=== PATIENT | female | born 1950 | race Caucasian/White ===

== ENCOUNTER → 2017-06-06 | Outpatient (CLI) | payer MEDICARE, BC ==
--- NOTE | 2017-06-10 08:05 | MM ---
Reason for exam: screening (asymptomatic). Last mammogram was performed 1 year and 1 month ago. History: Patient is postmenopausal, has history of breast cancer at age 59, has history of high-risk lesion on a previous biopsy at age 59, and is nulliparous. Malignant right breast needle localzation of the right breast, March 22, 2010. Malignant right mammotome panel of the right breast, March 14, 2010. Lumpectomy of the right breast, 2009. Benign excisional biopsy of the right breast, 1997. 2 benign cyst aspirations, 1995. Took estrogen for 9 years beginning at age 49. Took progesterone for 9 years beginning at age 49. Physical Findings: A clinical breast exam by your physician is recommended on an annual basis and results should be correlated with mammographic findings. MG 3D Screening Mammo W/Cad Bilateral CC and MLO view(s) were taken. Prior study comparison: May 20, 2016, bilateral MG screening mammo w CAD. May 18, 2015, bilateral MG 3d diag mammo w/cad [facility]. The breast tissue is heterogeneously dense. This may lower the sensitivity of mammography. No significant changes when compared with prior studies. ASSESSMENT: Negative, BI-RAD 1 RECOMMENDATION: Follow-up diagnostic mammogram of both breasts in 1 year.
== END | disposition home or self-care (01) ==
LOC: RADMAMWWP 07:48
PROVIDERS: ATTEND Internal Medicine Geriatric Medicine
DX: Z12.31 Encounter for screening mammogram for malignant neoplasm of breast (principal)
CPT/HCPCS: 77063; G0202

== ENCOUNTER → 2018-06-08 | Outpatient (CLI) | payer MEDICARE, BC ==
--- NOTE | 2018-06-08 23:17 | BD ---
EXAMINATION TYPE: Axial Bone Density DATE OF EXAM: 06/08/2018 COMPARISON: NONE CLINICAL HISTORY: 67-year-old female age-related osteoporosis, postmenopausal screening Height: 65 Weight: 132.9 FRAX RISK QUESTIONS: Alcohol (3 or more units per day): no Family History (Parent hip fracture): yes Glucocorticoids (More than 3mos): no (Ex: prednisone, prednisolone, methylprednisolone, dexamethasone, and hydrocortisone). History of Fracture in Adulthood: no Secondary Osteoporosis: 1. Type 1 Diabetes: no 2. Hyperthyroidism: no 3. Menopause before 45: no 4. Malnutrition: no 5. Chronic liver disease: no Rheumatoid Arthritis: no Current Tobacco Use: no RISK FACTORS HISTORY OF: Family History of Osteoporosis: no Active: yes Diet low in dairy products/other sources of calcium: yes Postmenopausal woman: age 59 Lost more than 2 inches in height since high school: no MEDICATIONS: simvastatin, Drisdol, loratadine, floricet, aspirin, caltrate, omega 3 Additional History: EXAM MEASUREMENTS: Bone mineral densitometry was performed using the [employer] System. Bone mineral density as measured about the Lumbar spine is: ----- L1-L4(G/cm2): 1.124 T Score Values are as follows: ----- L2: -0.6 ----- L3: -0.2 ----- L4: -0.4 ----- L1-L4: -0.5 Bone mineral density has: decreased -3.0 % since study of: 05.18.2015 Bone mineral density about the R hip (g/cm2): 0.736 Bone mineral density about the L hip (g/cm2): 0.740 T Score values are as follows: -----R Neck: -2.2 -----L Neck: -2.1 -----R Total: -1.9 -----L Total: -1.9 Bone mineral density has: decreased -2.0 % since study of: 05.18.2015 IMPRESSION: Osteopenia (T Score between -2.5 and -1). There is slightly increased risk of fracture and the patient may be considered for treatment. Re-Screen 2-5 years. NOTE: T-SCORE=SD OF THE YOUNG ADULT MEAN.
--- NOTE | 2018-06-09 13:11 | MM ---
Reason for exam: screening (asymptomatic). Last mammogram was performed 1 year ago. History: Patient is postmenopausal, has history of breast cancer at age 59, has history of high-risk lesion on a previous biopsy at age 59, and is nulliparous. Malignant right breast needle localzation of the right breast, March 22, 2010. Malignant right mammotome panel of the right breast, March 14, 2010. Lumpectomy of the right breast, 2009. Benign excisional biopsy of the right breast, 1997. 2 benign cyst aspirations, 1995. Took estrogen for 9 years beginning at age 49. Took progesterone for 9 years beginning at age 49. Physical Findings: A clinical breast exam by your physician is recommended on an annual basis and results should be correlated with mammographic findings. MG 3D Screening Mammo W/Cad Bilateral CC and MLO view(s) were taken. Prior study comparison: June 06, 2017, bilateral MG 3d screening mammo w/cad. May 20, 2016, bilateral MG screening mammo w CAD. The breast tissue is heterogeneously dense. This may lower the sensitivity of mammography. Benign appearing bilateral calcifications. No suspicious abnormality. Post therapy change on right breast. No significant changes when compared with prior studies. ASSESSMENT: Benign, BI-RAD 2 RECOMMENDATION: Routine screening mammogram of both breasts in 1 year.
== END | disposition home or self-care (01) ==
LOC: RADMAMWWP 07:56
PROVIDERS: ATTEND Internal Medicine
DX: Z12.31 Encounter for screening mammogram for malignant neoplasm of breast (principal); M85.88 Other specified disorders of bone density and structure, other site
CPT/HCPCS: 77063; 77067; 77080

== ENCOUNTER → 2019-06-10 | Outpatient (CLI) | payer MEDICARE, BC ==
--- NOTE | 2019-06-11 12:13 | MM ---
Reason for exam: screening (asymptomatic). Last mammogram was performed 1 year ago. History: Patient is postmenopausal, has history of breast cancer at age 59, has history of high-risk lesion on a previous biopsy at age 59, and is nulliparous. Malignant right breast needle localzation of the right breast, March 22, 2010. Malignant right mammotome panel of the right breast, March 14, 2010. Lumpectomy of the right breast, 2009. Benign excisional biopsy of the right breast, 1997. 2 benign cyst aspirations, 1995. Took estrogen for 9 years beginning at age 49. Took progesterone for 9 years beginning at age 49. Physical Findings: A clinical breast exam by your physician is recommended on an annual basis and results should be correlated with mammographic findings. MG 3D Screening Mammo W/Cad Bilateral CC and MLO view(s) were taken. Prior study comparison: June 08, 2018, bilateral MG 3d screening mammo w/cad. June 06, 2017, bilateral MG 3d screening mammo w/cad. The breast tissue is heterogeneously dense. This may lower the sensitivity of mammography. Focal asymmetry upper outer right breast. This finding is changed when compared with previous exams. ASSESSMENT: Incomplete: need additional imaging evaluation, BI-RAD 0 RECOMMENDATION: Special view mammogram of the right breast. If lesion persists on supplemental views, image directed ultrasound is recommended. [facility] will attempt to contact patient to return for supplemental views and ultrasound if indicated.
== END | disposition home or self-care (01) ==
LOC: RADMAMWWP 08:47
PROVIDERS: ATTEND Internal Medicine Geriatric Medicine
DX: Z12.31 Encounter for screening mammogram for malignant neoplasm of breast (principal)
CPT/HCPCS: 77063; 77067

== ENCOUNTER → 2019-06-22 | Outpatient (CLI) | payer MEDICARE, BC ==
--- NOTE | 2019-06-23 08:07 | MM ---
Reason for exam: additional evaluation requested from abnormal screening. Last mammogram was performed less than 1 month ago. History: Patient is postmenopausal, has history of breast cancer at age 59, has history of high-risk lesion on a previous biopsy at age 59, and is nulliparous. Malignant right breast needle localzation of the right breast, March 22, 2010. Malignant right mammotome panel of the right breast, March 14, 2010. Lumpectomy of the right breast, 2009. Benign excisional biopsy of the right breast, 1997. 2 benign cyst aspirations, 1995. Took estrogen for 9 years beginning at age 49. Took progesterone for 9 years beginning at age 49. Physical Findings: Nurse did not find any significant physical abnormalities on exam. MG 3D Work Up W/Cad RT Spot compression CC, spot compression MLO, and LM view(s) were taken of the right breast. Prior study comparison: June 10, 2019, bilateral MG 3d screening mammo w/cad. June 08, 2018, bilateral MG 3d screening mammo w/cad. The breast tissue is heterogeneously dense. This may lower the sensitivity of mammography. Finding: Stable architectural distortion in the upper outer quadrant of the right breast consistent with known excisional changes. No new lesion seen. These results were verbally communicated with the patient and result sheet given to the patient on 06/22/19. ASSESSMENT: Benign, BI-RAD 2 RECOMMENDATION: Follow-up diagnostic mammogram of both breasts in 1 year. Back on schedule.
== END | disposition home or self-care (01) ==
LOC: RADMAMWWP 14:46
PROVIDERS: ATTEND Internal Medicine Geriatric Medicine
DX: R92.8 Other abnormal and inconclusive findings on diagnostic imaging of breast (principal)
CPT/HCPCS: 77065; G0279; 77061

== ENCOUNTER → 2020-07-12 | Outpatient (CLI) | payer MEDICARE, BC ==
--- NOTE | 2020-07-12 14:36 | MM ---
Reason for exam: additional evaluation requested from prior study. Last mammogram was performed 1 year and 1 month ago. History: Patient is postmenopausal, has history of breast cancer at age 59, has history of high-risk lesion on a previous biopsy at age 59, and is nulliparous. Malignant right breast needle localzation of the right breast, March 22, 2010. Malignant right mammotome panel of the right breast, March 14, 2010. Lumpectomy of the right breast, 2009. Benign excisional biopsy of the right breast, 1997. 2 benign cyst aspirations, 1995. Took estrogen for 9 years beginning at age 49. Took progesterone for 9 years beginning at age 49. Physical Findings: Nurse did not find any significant physical abnormalities on exam. MG 3D Diag Mammo W/Cad [facility] Bilateral CC and MLO view(s) were taken. Prior study comparison: June 22, 2019, right breast MG 3d work up w/cad RT. June 10, 2019, bilateral MG 3d screening mammo w/cad. The breast tissue is heterogeneously dense. This may lower the sensitivity of mammography. Stable benign calcifications. Stable post lumpectomy changes right breast. No significant new findings when compared with previous films. These results were verbally communicated with the patient and result sheet given to the patient on 07/12/20. ASSESSMENT: Benign, BI-RAD 2 RECOMMENDATION: Follow-up diagnostic mammogram of both breasts in 1 year.
--- NOTE | 2020-07-17 09:00 | BD ---
EXAMINATION TYPE: Axial Bone Density DATE OF EXAM: 07/12/2020 COMPARISON: DEXA 2018. CLINICAL HISTORY: Osteoporosis. Height: 5 FT 5 IN Weight: 130 FRAX RISK QUESTIONS: Alcohol (3 or more units per day): NO Family History (Parent hip fracture): YES Glucocorticoids (More than 3mos): NO (Ex: prednisone, prednisolone, methylprednisolone, dexamethasone, and hydrocortisone). History of Fracture in Adulthood: NO Secondary Osteoporosis: 1. Type 1 Diabetes: NO 2. Hyperthyroidism: NO 3. Menopause before 45: NO 4. Malnutrition: NO 5. Chronic liver disease: NO Rheumatoid Arthritis: NO Current Tobacco Use: NO RISK FACTORS HISTORY OF: Family History of Osteoporosis: NO Active: YES Diet low in dairy products/other sources of calcium: NO Postmenopausal woman: AGE 59 Take estrogen and/or progesterone medications: TOOK HRT FROM AGE [age] NONE NOW Lost more than 2 inches in height since high school: NO MEDICATIONS: Additional Medications: SIMVASTATIN, VIT D ,MIGRAINE MEDS NEEDED,ALLERGY MEDS, CALCIUM Additional History: EXAM MEASUREMENTS: Bone mineral densitometry was performed using the [employer] System. Bone mineral density as measured about the Lumbar spine is: ----- L1-L4(G/cm2): 1.149 T Score Values are as follows: ----- L2: -0.8 ----- L3: 0.0 ----- L4: 0.0 ----- L1-L4: -0.3 Bone mineral density has: DECREASED -1.5 % since study of: 2014 Bone mineral density about the R hip (g/cm2): 0.733 Bone mineral density about the L hip (g/cm2): 0.718 T Score values are as follows: -----R Neck: -2.2 -----L Neck: -2.3 -----R Total: -1.9 -----L Total: -2.1 Bone mineral density has: DECREASED -4.1 % since study of: 2014 IMPRESSION: Osteopenia (T Score between -2.5 and -1) remains present. There remains slightly increased risk of fracture and the patient may be considered for treatment. Re-Screen 2-5 years. NOTE: T-SCORE=SD OF THE YOUNG ADULT MEAN.
== END | disposition home or self-care (01) ==
LOC: RADBDWWP 13:15
PROVIDERS: ATTEND Internal Medicine Geriatric Medicine
DX: R92.2 Inconclusive mammogram (principal); M85.80 Other specified disorders of bone density and structure, unspecified site; M81.0 Age-related osteoporosis without current pathological fracture
CPT/HCPCS: 77080; 77066; G0279; 77062

== ENCOUNTER → 2021-07-16 | Outpatient (CLI) | payer MEDICARE, BC ==
--- NOTE | 2021-07-18 11:23 | MM ---
Reason for exam: screening (asymptomatic). Last mammogram was performed 1 year ago. History: Patient is postmenopausal, has history of breast cancer at age 59, has history of high-risk lesion on a previous biopsy at age 59, and is nulliparous. Malignant right breast needle localzation of the right breast, March 22, 2010. Malignant right mammotome panel of the right breast, March 14, 2010. Lumpectomy of the right breast, 2009. Benign excisional biopsy of the right breast, 1997. 2 benign cyst aspirations, 1995. Took estrogen for 9 years beginning at age 49. Took progesterone for 9 years beginning at age 49. Physical Findings: A clinical breast exam by your physician is recommended on an annual basis and results should be correlated with mammographic findings. MG 3D Screening Mammo W/Cad Bilateral CC and MLO view(s) were taken. Prior study comparison: July 12, 2020, bilateral MG 3d diag mammo w/cad [facility]. June 22, 2019, right breast MG 3d work up w/cad RT. The breast tissue is heterogeneously dense. This may lower the sensitivity of mammography. Stable course calcifications laterally. Excisional changes right breast. No significant changes when compared with prior studies. ASSESSMENT: Benign, BI-RAD 2 RECOMMENDATION: Routine screening mammogram of both breasts in 1 year.
== END | disposition home or self-care (01) ==
LOC: RADMAMWWP 13:13
PROVIDERS: ATTEND Internal Medicine Geriatric Medicine
DX: Z12.31 Encounter for screening mammogram for malignant neoplasm of breast (principal); Z85.3 Personal history of malignant neoplasm of breast; Z78.0 Asymptomatic menopausal state
CPT/HCPCS: 77063; 77067

== ENCOUNTER → 2022-07-17 | Outpatient (CLI) | payer MEDICARE ==
--- NOTE | 2022-07-17 13:10 | BD ---
EXAMINATION TYPE: Axial Bone Density DATE OF EXAM: 07/17/2022 COMPARISON: 07/12/2020 CLINICAL HISTORY: 71 years old Female. ICD-10 CODE: M81.0 age related osteoporosis Height: 64 Weight: 128 FRAX RISK QUESTIONS: Alcohol (3 or more units per day): NO Family History (Parent hip fracture): YES FATHER History of Fracture in Adulthood: NO Secondary Osteoporosis: NO Rheumatoid Arthritis: NO RISK FACTORS HISTORY OF: Family History of Osteoporosis: NO Active: YES Diet low in dairy products/other sources of calcium: NO Postmenopausal woman: YES 53 Lost more than 2 inches in height since high school: NO Frequent falls: NO Poor Health: NO Hyperparathyroidism: NO Adrenal Insufficiency: NO MEDICATIONS: Additional Medications: YES CHOLESTEROL , VIT D , MIGRAINE MEDS , CALTRATE Additional History: YES LOBULAR CA STAGE 0 HIGH RISK EXAM MEASUREMENTS: Bone mineral densitometry was performed using the [employer] System. Bone mineral density as measured about the Lumbar spine is: ----- L1-L4(G/cm2): 1.131 T Score Values are as follows: ----- L1: -0.8 ----- L2: -1.0 ----- L3: 0.0 ----- L4: -0.1 ----- L1-L4: -0.4 Bone mineral density has: Decreased -1.6% since study of: 07/12/2020 Bone mineral density about the R hip (g/cm2): 0.746 Bone mineral density about the L hip (g/cm2): 0.745 T Score values are as follows: -----R Neck: -2.4 -----L Neck: -2.2 -----R Total: -2.1 -----L Total: -2.1 Bone mineral density has: Decreased -0.9% since study of: 07/12/2020 FRAX%s: The graph provided illustrates a 21.4% chance for a major osteoporotic fx and a 7.9% chance f or the hips probability for fx in 10 years time. IMPRESSION: Osteopenia (T Score between -2.5 and -1). There is slightly increased risk of fracture and the patient may be considered for treatment. Re-Screen 2-5 years. NOTE: T-SCORE=SD OF THE YOUNG ADULT MEAN.
--- NOTE | 2022-07-18 08:49 | MM ---
Reason for Exam: Screening (asymptomatic). Last screening mammogram was performed 12 month(s) ago. Patient History: Menarche at age 15. Patient has no children. Postmenopausal. Breast cancer, right, age 59. Estrogen for 9 years from age 49 until age 59. Progesterone for 9 years from age 49 until age 59. 2009, Lumpectomy on the Right side. Benign Cyst Aspiration. 1997, Benign Excisional Biopsy on the right side. Benign Cyst Aspiration. 03/22/2010, Malignant Excisional Biopsy on the right side. 03/14/2010, Malignant Core Biopsy on the right side. Prior Study Comparison: 06/22/2019 Right Diagnostic Mammogram, [facility]. 07/12/2020 Bilateral Diagnostic Mammogram, [facility]. 07/16/2021 Bilateral Screening Mammogram, [facility]. Tissue Density: The breast tissue is heterogeneously dense. This may lower the sensitivity of mammography. Findings: Analyzed By CAD. Right: Asymmetry middle depth 3.3 cm from nipple posterior nipple line best appreciated on CC view measuring approximately 4 mm. Left: There is no suspicious group of microcalcifications or new suspicious mass in either breast. Overall Assessment: Incomplete: need additional imaging evaluation, BI-RAD 0 Management: Diagnostic Mammogram of the right breast. Diagnostic Breast Ultrasound of the right breast. Ultrasound if asymmetry persists in the right breast. A clinical breast exam by your physician is recommended on an annual basis and results should be correlated with mammographic findings. [facility] will attempt to contact patient to return for supplemental views and ultrasound if indicated. Electronically signed and approved by: Willy Gallardo DO
== END | disposition home or self-care (01) ==
LOC: RADMAMWWP 08:47
PROVIDERS: ATTEND Internal Medicine Geriatric Medicine
DX: Z12.31 Encounter for screening mammogram for malignant neoplasm of breast (principal); M81.0 Age-related osteoporosis without current pathological fracture; M85.89 Other specified disorders of bone density and structure, multiple sites; Z78.0 Asymptomatic menopausal state
CPT/HCPCS: 77063; 77067; 77080

== ENCOUNTER → 2022-07-22 | Outpatient (CLI) | payer MEDICARE ==
--- NOTE | 2022-07-22 09:11 | MM ---
Reason for Exam: Additional evaluation requested from abnormal screening. Last screening mammogram was performed less than 1 month ago. Patient History: Menarche at age 15. Patient has no children. Postmenopausal. Breast cancer, right, age 59. Estrogen for 9 years from age 49 until age 59. Progesterone for 9 years from age 49 until age 59. 2009, Lumpectomy on the Right side. Benign Cyst Aspiration. 1997, Benign Excisional Biopsy on the right side. Benign Cyst Aspiration. 03/22/2010, Malignant Excisional Biopsy on the right side. 03/14/2010, Malignant Core Biopsy on the right side. Prior Study Comparison: 12/07/2002 Bilateral Screening Mammogram, [facility]. 12/14/2004 Bilateral Screening Mammogram, [facility]. 12/17/2005 Bilateral Screening Mammogram, [facility]. 03/20/2011 Bilateral Diagnostic Mammogram, [facility]. 03/25/2012 Bilateral Diagnostic Mammogram, [facility]. 04/13/2013 Bilateral Diagnostic Mammogram, [facility]. 05/17/2014 Bilateral Diagnostic Mammogram, [facility]. 05/18/2015 Bilateral Diagnostic Mammogram, [facility]. 05/20/2016 Bilateral Screening Mammogram, [facility]. 06/06/2017 Bilateral Screening Mammogram, [facility]. 06/08/2018 Bilateral Screening Mammogram, [facility]. 06/10/2019 Bilateral Screening Mammogram, [facility]. 06/22/2019 Right Diagnostic Mammogram, [facility]. 07/12/2020 Bilateral Diagnostic Mammogram, [facility]. 07/16/2021 Bilateral Screening Mammogram, [facility]. 07/17/2022 Bilateral MG 3D screening mammo w/cad, [facility]. Tissue Density: Right: The breast tissue is heterogeneously dense. This may lower the sensitivity of mammography. Findings: Analyzed By CAD. Postexcisional changes 11:00 right breast. Central right CC view nodular asymmetric density becomes less defined on spot 3-D CC image, appearance similar compared to 07/16/2021 and 07/12/2020 exams. Precautionary 6 month follow-up recommended. Overall Assessment: Probably benign, BI-RAD 3 Management: Diagnostic Mammogram of the right breast in 6 months. 1. Patient should continue monthly self breast exams. 2. A clinical breast exam by your physician is recommended on an annual basis. 3. This exam should not preclude additional follow-up of suspicious palpable abnormalities. Results were given to the patient verbally at the time of exam. Electronically signed and approved by: Bruce Darnell M.D. Radiologist
== END | disposition home or self-care (01) ==
LOC: RADMAMWWP 06:58
PROVIDERS: ATTEND Internal Medicine Geriatric Medicine
DX: R92.8 Other abnormal and inconclusive findings on diagnostic imaging of breast (principal); Z78.0 Asymptomatic menopausal state
CPT/HCPCS: 77065; G0279; 77061

== ENCOUNTER → 2023-01-29 | Outpatient (CLI) | payer MEDICARE ==
--- NOTE | 2023-01-30 08:49 | MM ---
Reason for Exam: Follow-up at short interval from prior study. Last screening mammogram was performed 7 month(s) ago. Patient History: Menarche at age 15. Patient has no children. Postmenopausal. Breast cancer, right, age 59. Estrogen for 9 years from age 49 until age 59. Progesterone for 9 years from age 49 until age 59. 2009, Lumpectomy on the Right side. Benign Cyst Aspiration. 1997, Benign Excisional Biopsy on the right side. Benign Cyst Aspiration. 03/22/2010, Malignant Excisional Biopsy on the right side. 03/14/2010, Malignant Core Biopsy on the right side. Prior Study Comparison: 07/16/2021 Bilateral Screening Mammogram, [facility]. 07/17/2022 Bilateral MG 3D screening mammo w/cad, [facility]. 07/22/2022 Right MG 3D work up w/cad RT, [facility]. Tissue Density: Right: The breast tissue is heterogeneously dense. This may lower the sensitivity of mammography. Findings: Analyzed By CAD. Stable fibroglandular tissue appears within the right breast. No suspicious findings. No new suspicious masses, calcifications or distortions. Overall Assessment: Benign, BI-RAD 2 Management: Screening Mammogram of both breasts in 6 months. Results were given to the patient verbally at the time of exam. Patient should continue monthly self-breast exams. A clinical breast exam by your physician is recommended on an annual basis. This exam should not preclude additional follow-up of suspicious palpable abnormalities. Note on Tawana scores and lifetime risk: 1. A Tawana score greater than 3% is considered moderate risk. If this is the case, consider specialist referral to assess eligibility for a risk reducing agent. 2. If overall lifetime risk for the development of breast cancer is 20% or higher, the patient may qualify for future screening with alternating mammogram and breast MRI. Electronically signed and approved by: Willy Gallardo DO
== END | disposition home or self-care (01) ==
LOC: RADMAMWWP 14:03
PROVIDERS: ATTEND Internal Medicine Geriatric Medicine
DX: R92.8 Other abnormal and inconclusive findings on diagnostic imaging of breast (principal); Z78.0 Asymptomatic menopausal state
CPT/HCPCS: 77065; G0279; 77061

== ENCOUNTER → 2023-08-04 | Outpatient (CLI) | payer MEDICARE ==
--- NOTE | 2023-08-05 10:22 | MM ---
Reason for Exam: Screening (asymptomatic). Last mammogram was performed 1 year(s) and 1 month(s) ago. Patient History: Menarche at age 15. Patient has no children. Postmenopausal. Breast cancer, right, age 59. Estrogen for 9 years from age 49 until age 59. Progesterone for 9 years from age 49 until age 59. 2009, Lumpectomy on the Right side. Benign Cyst Aspiration. 1997, Benign Excisional Biopsy on the right side. Benign Cyst Aspiration. 03/22/2010, Malignant Excisional Biopsy on the right side. 03/14/2010, Malignant Core Biopsy on the right side. Prior Study Comparison: 07/17/2022 Bilateral MG 3D screening mammo w/cad, [facility]. 07/22/2022 Right MG 3D work up w/cad RT, [facility]. 01/29/2023 Right MG 3D diag mammo w/cad RT, [facility]. Tissue Density: The breast tissue is heterogeneously dense. This may lower the sensitivity of mammography. Findings: Analyzed By CAD. There is no suspicious group of microcalcifications or new suspicious mass. Overall Assessment: Negative, BI-RAD 1 Management: Screening Mammogram of both breasts in [address] [facility] will attempt to contact patient to return for supplemental views and ultrasound if indicated. Patient should continue monthly self-breast exams. A clinical breast exam by your physician is recommended on an annual basis. This exam should not preclude additional follow-up of suspicious palpable abnormalities. Note on Tawana scores and lifetime risk: 1. A Tawana score greater than 3% is considered moderate risk. If this is the case, consider specialist referral to assess eligibility for a risk reducing agent. 2. If overall lifetime risk for the development of breast cancer is 20% or higher, the patient may qualify for future screening with alternating mammogram and breast MRI. Electronically signed and approved by: Willy Gallardo DO
== END | disposition home or self-care (01) ==
LOC: RADMAMWWP 10:22
PROVIDERS: ATTEND Internal Medicine Geriatric Medicine
DX: Z12.31 Encounter for screening mammogram for malignant neoplasm of breast (principal); Z85.3 Personal history of malignant neoplasm of breast; Z78.0 Asymptomatic menopausal state
CPT/HCPCS: 77063; 77067

== ENCOUNTER → 2024-08-05 | Outpatient (CLI) | payer MEDICARE ==
--- NOTE | 2024-08-05 12:30 | BD ---
EXAMINATION TYPE: Axial Bone Density DATE OF EXAM: 08/05/2024 CLINICAL HISTORY: 73 years old Female. ICD-10 CODE: M81.0 OSTEOPENIA , Additional History: Height: 5 ft 5 in Weight: 130 FRAX RISK QUESTIONS: Alcohol (3 or more units per day): no Family History (Parent hip fracture): yes Glucocorticoids (More than 3mos): no (Ex: prednisone, prednisolone, methylprednisolone, dexamethasone, and hydrocortisone). History of Fracture in Adulthood: no Secondary Osteoporosis: 1. Type 1 Diabetes: no 2. Hyperthyroidism: no 3. Menopause before 45: no 4. Malnutrition: no 5. Chronic liver disease: no Rheumatoid Arthritis: no Current Tobacco Use: no RISK FACTORS HISTORY OF: Surgery to Spine/Hip(right/left)/Wrist (right/left): no MEDICATIONS: Thyroid Medications: none Osteoporosis Medications: none EXAM MEASUREMENTS: Bone mineral densitometry was performed using the [email or web address] System. Bone mineral density as measured about the Lumbar spine is: ----- L1-L4(G/cm2): 1.102 T Score Values are as follows: ----- L1: -1.1 ----- L2: -1.2 ----- L3: -0.2 ----- L4: -0.4 ----- L1-L4: -0.6 Z Score Values are as follows: ----- L1: 0.8 ----- L2: 0.7 ----- L3: 1.7 ----- L4: 1.5 ----- L1-L4: 1.3 Bone mineral density has: decreased -2.6 % since study of: 2021 Bone mineral density about the R hip (g/cm2): 0.735 Bone mineral density about the L hip (g/cm2): 0.691 T Score values are as follows: -----R Neck: -2.2 -----L Neck: -2.5 -----R Total: -1.9 -----L Total: -2.4 Z Score values are as follows: -----R Neck: -0.2 -----L Neck: -0.6 -----R Total: -0.2 -----L Total: -0.7 Bone mineral density has: decreased -1.6 % since study of: 2021 FRAX%s: The graph provided illustrates a 25.3 % chance for a major osteoporotic fx and a 13.4 % chanc e for the hips probability for fx in 10 years time. IMPRESSION: Osteopenia (T Score between -2.5 and -1) remains present. There is slightly increased risk of fracture and the patient may be considered for treatment. Re-Screen 2-5 years. NOTE: T-SCORE=SD OF THE YOUNG ADULT MEAN. [facility], , 08/05/2024 12:28 PM
--- NOTE | 2024-08-05 12:34 | MM ---
Reason for Exam: Screening (asymptomatic). Last screening mammogram was performed 12 month(s) ago. Patient History: Menarche at age 15. Patient has no children. Postmenopausal. Breast cancer, right, age 59. Estrogen for 9 years from age 49 until age 59. Progesterone for 9 years from age 49 until age 59. 2009, Lumpectomy on the Right side. Benign Cyst Aspiration. 1997, Benign Excisional Biopsy on the right side. Benign Cyst Aspiration. 03/22/2010, Malignant Excisional Biopsy on the right side. 03/14/2010, Malignant Core Biopsy on the right side. Prior Study Comparison: 07/22/2022 Right MG 3D work up w/cad RT, [facility]. 01/29/2023 Right MG 3D diag mammo w/cad RT, [facility]. 08/04/2023 Bilateral MG 3D screening mammo w/cad, [facility]. Tissue Density: The breasts are heterogeneously dense, which may obscure small masses. Findings: Analyzed By CAD. There are benign-appearing small round calcifications bilaterally redemonstrated. Focus of Dystrophic calcification in the left breast again seen. Benign-appearing bilateral axillary lymph nodes are again seen. Stable distortion consistent with posttreatment change in the upper aspect right breast. There is no suspicious new group of microcalcifications or new suspicious mass in either breast. Overall Assessment: Benign, BI-RAD 2 Management: Screening Mammogram of both breasts in 1 year. . Patient should continue monthly self-breast exams. A clinical breast exam by your physician is recommended on an annual basis. This exam should not preclude additional follow-up of suspicious palpable abnormalities. Note on Tawana scores and lifetime risk: 1. A Tawana score greater than 3% is considered moderate risk. If this is the case, consider specialist referral to assess eligibility for a risk reducing agent. 2. If overall lifetime risk for the development of breast cancer is 20% or higher, the patient may qualify for future screening with alternating mammogram and breast MRI. [facility], , 08/05/2024 12:32 PM. Electronically signed and approved by: Good Vargas M.D.
== END | disposition home or self-care (01) ==
LOC: RADMAMWWP 10:02
PROVIDERS: ATTEND Internal Medicine Geriatric Medicine
DX: Z12.31 Encounter for screening mammogram for malignant neoplasm of breast (principal); M81.0 Age-related osteoporosis without current pathological fracture; R92.333 Mammographic heterogeneous density, bilateral breasts; M85.89 Other specified disorders of bone density and structure, multiple sites; Z78.0 Asymptomatic menopausal state; Z85.3 Personal history of malignant neoplasm of breast
CPT/HCPCS: 77063; 77067; 77080